=== PATIENT | male | born 1930 | race Hispanic/Latino ===

== ENCOUNTER 2016-11-09 16:21 | Outpatient (CLI) | payer MEDICARE ==
[2016-11-09 17:15] LABS: #Basophils 0.1 thou/uL (0.0-0.2); #Eosinphils 0.2 thou/uL (0.0-0.7); #Lymphocytes 1.1 thou/uL (1.20-3.40); #Monocytes 0.7 thou/uL (0.11-0.59); #Neutrophils 4.2 thou/uL (1.40-6.50); %Basophils 0.8 % (0.0-1.0); %Monocytes 10.9 % (0.0-10.0); Hematocrit 41.8 % (42.0-52.0); Mean Platelet Volume 7.8 fL (7.4-10.4); Red Blood Cell (RBC) Count 4.68 mill/uL (4.70-6.10); White Blood Cell (WBC) Count 6.3 thou/uL (4.8-10.8)
[2016-11-09 17:24] LABS: ALT (SGPT) 9 U/L (0-55); AST (SGOT) 17 U/L (5-34); Alkaline Phosphatase 88 U/L (40-150); Anion Gap 13 mmol/L (10-20); BUN (Urea Nitrogen) 13 mg/dL (8.4-25.7); Bilirubin, Total 0.5 mg/dL (0.2-1.2); Calc. Creatinine Clearance 0 mL/min (70-130); Calcium 9.1 mg/dL (7.8-10.44); Carbon Dioxide 28 mmol/L (23-31); Chloride 103 mmol/L (98-107); Estimated GFR-MDRD 76; Globulin 2.9 g/dL (2.4-3.5); Protein, Total 7.2 g/dL (5.8-8.1)
[2016-11-09 20:53] LABS: Bilirubin Negative (Negative); Blood, Urine Trace (Negative); Glucose, Urine (Dipstick) Negative (Negative); Ketone, Urine Negative (Negative); Nitrite Negative (Negative); Protein, Urine (Dipstick) Negative (Neg-Trace)
[2016-11-09 21:01] LABS: RBC/HPF 0-3 HPF (0-3)
[2016-11-09 21:02] LABS: Bacteria/HPF None Seen HPF (None Seen); Squamous Epithelial None Seen HPF (0-3); WBC/HPF None Seen HPF (0-3)
== END 2016-11-09 16:22 | disposition home or self-care (01) ==
LOC: HPCALD 16:21
PROVIDERS: ATTEND Family Medicine
DX: I10 Essential (primary) hypertension (principal)
CPT/HCPCS: 36415; 80053; 81001; 84443; 85025

== ENCOUNTER 2016-11-12 10:46 | Outpatient (CLI) | payer MEDICARE ==
[2016-11-12 18:36] LABS: Iron 67 ug/dL (65-175)
== END 2016-11-12 10:47 | disposition home or self-care (01) ==
LOC: HPCALD 10:46
PROVIDERS: ATTEND Family Medicine
DX: D64.9 Anemia, unspecified (principal)
CPT/HCPCS: 36415; 83540; 83550